=== PATIENT | female | born 1965 | race Caucasian/White ===

== ENCOUNTER 2023-11-30 08:06 | Outpatient (CLI) | payer BC | END 2023-11-30 08:07 | disposition home or self-care (01) | LOC: CSHMAMMO 08:06 | PROVIDERS: ATTEND Obstetrics & Gynecology | DX: Z13.820 Encounter for screening for osteoporosis (principal); M81.0 Age-related osteoporosis without current pathological fracture; M85.88 Other specified disorders of bone density and structure, other site | CPT/HCPCS: 77080 ==